=== PATIENT | female | born 1955 | race Hispanic/Latino ===

== ENCOUNTER 2019-03-22 12:01 | Emergency (ER) | payer OTHER, MEDICARE, SELFPAY ==
[2019-03-22 12:18] VITALS: BP 130/72; PULSE 54; RESP 18; TEMP 36.4; O2SAT 98; BMI 31.7
[2019-03-22 14:30] LABS: Bacteria Urine None Seen; RBC Urine None Seen (0-5/HPF)
[2019-03-22 14:47] LABS: Culture Indicated Urine Specimen Cultured; Mucus Urine 1+ (Negative); Squamous Epithelial Cell Urine 0-1 /HPF (0-5/HPF); WBC Urine 0-1/HPF (0-5/HPF)
--- NOTE | 2019-03-22 14:58 | DI.US.S_ITS ---
PROCEDURE: US PELVIC COMPLETE INDICATIONS: BILATERAL SUPRAPUBIC PAIN, postmenopausal TECHNIQUE: Real-time scanning was performed of the pelvic organs, with image documentation. Additional endovaginal scanning was necessary due to incomplete visualization of the adnexal and endometrial structures by transabdominal scanning. COMPARISON: None. FINDINGS: Transabdominal scanning: Limited scanning through the kidneys shows no hydronephrosis. No pathologic free abdominal or pelvic fluid. Endovaginal scanning: Uterus: The uterus is normal in size and measures 6.6 x 5.0 x 4.9 cm. Moderate heterogeneity of the myometrium is identified. An echogenic focus on the posterior myometrium may represent a calcification. The endometrium is thickened and measures 13 mm in maximal combined thickness with numerous small cystic spaces throughout. No definite fluid is appreciated. The cervix is unremarkable. Ovaries: The ovaries were not definitely seen, which likely is related to ovarian atrophy or overlying bowel gas. No adnexal masses are appreciated. IMPRESSION: 1. Thickened heterogeneous endometrium is unusual given the patient's postmenopausal state and is suspicious for a potential endometrial neoplasm. Gynecologic consultation is recommended for biopsy. 2. The ovaries are not identified. Dictated by: Clay Lindsay M.D. on 03/22/2019 at 15:03 Approved by: Clay Lindsay M.D. on 03/22/2019 at 15:11
[2019-03-22 15:00] VITALS: BP 122/79; PULSE 65; RESP 15; O2SAT 98
--- NOTE | 2019-03-22 15:48 | PC.NURSE ---
Pt had questions about blood work. Answered pts questions, pt agreeable to blood draw.
[2019-03-22 16:01] LABS: Add Manual Diff / Slide Review NO; Basophils Absolute Auto 0 /uL (0-100); Basophils Percent Auto 0.8 % (0-2); Eosinophils Absolute Auto 100 /uL (0-450); Eosinophils Percent Auto 1.7 % (2-4); Hematocrit 40.1 % (36-46); Hemoglobin 13.5 g/dL (12.0-16.0); Lymphocytes Absolute Auto 1600 /uL (1100-4500); Lymphocytes Percent Auto 30.6 % (25-40); Mean Corpuscular HGB Conc 33.7 % (30-36); Mean Corpuscular Hemoglobin 28.2 PG (26-34); Mean Corpuscular Volume 83.7 fL (80-100); Monocytes Absolute Auto 400 /uL (0-900); Monocytes Percent Auto 7.9 % (3-14); Neutrophils Absolute Auto 3100 /uL (1500-7000); Platelet Count 227 X10^3/uL (150-400); Red Blood Cell Count 4.79 X10^6/uL (4.0-5.2); Red Cell Distribution Width 13.1 % (11.6-14.8); White Blood Cell Count 5.3 X10^3/uL (4.5-11.0)
[2019-03-22 16:12] LABS: BUN Creatinine Ratio 22.9 (6-22); Blood Urea Nitrogen 16 mg/dL (7-17); Calcium 9.5 mg/dL (8.4-10.2); Carbon Dioxide 29 mmol/L (22-32); Chloride 102 mmol/L (98-107); Estimated Glomerular Filt Rate > 60.0 mL/min (>60); Glucose 101 mg/dL (80-110); HEMOLYSIS < 15 (0-50); Potassium 3.9 mmol/L (3.4-5.1); Sodium 140 mmol/L (137-145)
--- NOTE | 2019-03-22 16:15 | ED.ABDPAIN ---
HPI - Abdominal Pain <MERI ShelbyP - Last Filed: 03/22/19 19:42> General Chief Complaint: Abdominal Pain Stated Complaint: pelvic pain 1x week Time Seen by Provider: 03/22/19 14:20 Source: patient and family Mode of arrival: Family Vehicle Limitations: language barrier History of Present Illness HPI narrative: This is a 64-year-old female, nonsmoker, who presents to ED with family friend with chief complain of 1 week duration of suprapubic discomfort. Patient is currently visiting from [place] and does have established PCP back at home. Patient will return to home in about a week. Patient denies fever, nausea or vomiting for but some chills. Patient reports menopausal state for last 10 years without unusual vaginal bleeding or discharge. Patient does not endorses urinary symptoms such as urgency, dysuria, burning with sensation or hematuria. Patient denies close female family history of cancers. Related Data Home Medications Medication Instructions Recorded Confirmed levothyroxine 50 mcg PO DAILY 03/22/19 03/22/19 meloxicam 15 mg PO DAILY 03/22/19 simvastatin 40 mg PO DAILY 03/22/19 Allergies Allergy/AdvReac Type Severity Reaction Status Date / Time morphine Allergy Verified 03/22/19 14:23 lactose AdvReac Verified 03/22/19 14:23 Review of Systems <DARIEL Shelby - Last Filed: 03/22/19 19:42> Review of Systems Narrative: General: Denies fever, chills, fatigue, malaise, sweats. HEENT: Denies sinus pain, ear pain, sore throat, difficulty swallowing, dizziness. Respiratory: Denies dyspnea, cough, wheezing, hemoptysis, sputum. Cardiovascular: Denies chest pain, palpitations, orthopnea, edema. Gastrointestinal: Reports suprapubic discomfort for 1 week. Denies nausea, vomiting, abdominal pain, diarrhea, constipation, melena. : Denies dysuria, frequency, incontinence, hematuria, urinary retention. Musculoskeletal: Denies weakness, joint pain or bony pain. Skin: Denies rash, skin lesions, or other. Neurologic: Denies weakness, headache, numbness, change in speech, confusion, seizures, incoordination. Psychiatric: No concerning psychosocial issues. 12-point review of systems is negative except for those stated above. Patient History <DARIEL Shelby - Last Filed: 03/22/19 19:42> Surgical History H/O vein stripping (Acute) Social History Smoking Status: Never smoker Smoking Status: Never smoker alcohol intake frequency: holidays/special occasions only Substance Use Type: does not use Exam <DARIEL Shelby - Last Filed: 03/22/19 19:42> Narrative Exam Narrative: GEN: Alert, oriented x 3, well appearing and nourished, and in no acute distress. Head: Normal cephalic, atraumatic. No scalp or temporal tenderness, palpable mass or rash. EYES: Pupils are equal, round, and reactive to light and accommodation. Extraocular muscles are intact bilaterally. There is no subconjunctival hemorrhage, exudate and sclera non-icteric. ENT: Bilateral auditory canals and tympanic membranes clear. Hearing grossly intact. Nose without bleeding, purulent discharge or deviation. Facial sinuses nontender to palpate. Mucous membrane moist, no mucosal lesion. Throat without erythema, tonsillar hypertrophy or exudate. Uvula in midline, airway patent. Neck: Trachea in midline. No JVD, non-tender without lymphadenopathy. No masses or thyroid megaly. Supple, non-tender and no meningeal signs. CARDIAC: Normal regular rate and rhythm without murmurs, gallops, or rubs. No chest wall tenderness. No peripheral edema, cyanosis or pallor. Capillary refill is less than 2 seconds. RESPIRATORY: Lungs are clear to auscultate bilaterally. No cough, wheezes, rales, or rhonchi. No stridor, respiratory distress, increase work of breathing, or accessary muscle used. ABD: Abdomen soft, mild tender to palpate in bilateral suprapubic region and non-distended. No guarding or rebound tenderness to palpate. Bowel sounds are normal in all 4 quadrants. There is no palpable masses or organomegaly. EXT: Full painless ROM of all extremities with no loss of sensation, strength, effusion or edema. SKIN: Warm, dry, normal color for patient. No erythema, lesions or rash over visible areas. BACK: Nontender without deformity or crepitance. No flank tenderness. NEUROLOGICAL: Alert and oriented to place, time and person. Sensation and motor function intact bilaterally. No facial droops, dysphasia. PSYCHIATRIC: Good judgement and reason, without hallucinations, abnormal affect or abnormal behaviors during the examination. Initial Vital Signs Initial Vital Signs: Vital Signs Temperature 97.5 F L 03/22/19 12:18 Pulse Rate 54 L 03/22/19 12:18 Respiratory Rate 18 03/22/19 12:18 Blood Pressure 130/72 03/22/19 12:18 Pulse Oximetry 98 03/22/19 12:18 <Juhi Reyes MD - Last Filed: 03/22/19 19:53> Initial Vital Signs Initial Vital Signs: Vital Signs Temperature 97.5 F L 03/22/19 12:18 Pulse Rate 54 L 03/22/19 12:18 Respiratory Rate 18 03/22/19 12:18 Blood Pressure 130/72 03/22/19 12:18 Pulse Oximetry 98 03/22/19 12:18 Scores <DARIEL Shelby - Last Filed: 03/22/19 19:42> GCS [place] coma scale eye opening: Spontaneous [place] coma scale verbal response: Orientated [place] coma scale motor response: Obey commands [place] coma scale total score: 15 Course <DARIEL Shelby - Last Filed: 03/22/19 19:42> Orders Ordered: ED Orders 03/22/19 14:29 Urine Culture Stat Urine Microscopic Stat 03/22/19 14:58 US pelvic complete Stat 03/22/19 15:52 Basic Metabolic Panel Stat Complete Blood Count AUTO DIFF Stat Vital Signs Vital signs: Vital Signs - 8 hr 03/22/19 12:18 03/22/19 15:00 03/22/19 17:00 Temperature 97.5 F L Pulse Rate 54 L 65 63 Respiratory Rate 18 15 17 Blood Pressure 130/72 Blood Pressure [Right Arm] 122/79 126/66 Pulse Oximetry 98 98 98 03/22/19 18:00 Temperature Pulse Rate 62 Respiratory Rate 16 Blood Pressure 128/79 Blood Pressure [Right Arm] Pulse Oximetry 99 <Juhi Reyes MD - Last Filed: 03/22/19 19:53> Orders Ordered: ED Orders 03/22/19 14:29 Urine Culture Stat Urine Microscopic Stat 03/22/19 14:58 US pelvic complete Stat 12/31/19 15:52 Basic Metabolic Panel Stat Complete Blood Count AUTO DIFF Stat Vital Signs Vital signs: Vital Signs - 8 hr 03/22/19 12:18 03/22/19 15:00 03/22/19 17:00 Temperature 97.5 F L Pulse Rate 54 L 65 63 Respiratory Rate 18 15 17 Blood Pressure 130/72 Blood Pressure [Right Arm] 122/79 126/66 Pulse Oximetry 98 98 98 03/22/19 18:00 Temperature Pulse Rate 62 Respiratory Rate 16 Blood Pressure 128/79 Blood Pressure [Right Arm] Pulse Oximetry 99 MDM - Abdominal Pain <Ho Walker-MERI JuarezP - Last Filed: 03/22/19 19:42> Differential Diagnosis Differential diagnosis: Likely abdominal pain, acute appendicitis and other (Ovarian mass, endometrial mass) Medical Records Attestation: I reviewed the patient's medical records. Lab Data Attestation: I reviewed the patient's lab results. Result diagrams: 03/22/19 15:52 03/22/19 15:52 Labs: Lab Results 03/22/19 03/22/19 03/22/19 Range/Units 14:29 15:52 15:52 WBC 5.3 (4.5-11.0) X10^3/uL RBC 4.79 (4.0-5.2) X10^6/uL Hgb 13.5 (12.0-16.0) g/dL Hct 40.1 (36-46) % MCV 83.7 (80-100) fL MCH 28.2 (26-34) PG MCHC 33.7 (30-36) % RDW 13.1 (11.6-14.8) % Plt Count 227 (150-400) X10^3/uL Neut % (Auto) 59.0 (50-75) % Lymph % (Auto) 30.6 (25-40) % Schley % (Auto) 7.9 (3-14) % Eos % (Auto) 1.7 L (2-4) % Baso % (Auto) 0.8 (0-2) % Neut # (Auto) 3100 (9026-9461) /uL Lymph # (Auto) 1600 (5253-2004) /uL Schley # (Auto) 400 (0-900) /uL Eos # (Auto) 100 (0-450) /uL Baso # (Auto) 0 (0-100) /uL Sodium 140 (137-145) mmol/L Potassium 3.9 (3.4-5.1) mmol/L Chloride 102 (98-107) mmol/L Carbon Dioxide 29 (22-32) mmol/L BUN 16 (7-17) mg/dL Creatinine 0.70 (0.52-1.04) mg/dL Estimated GFR > 60.0 (>60) mL/min BUN/Creatinine Ratio 22.9 H (6-22) Glucose 101 (80-110) mg/dL Calcium 9.5 (8.4-10.2) mg/dL Urine RBC None seen (0-5/HPF) Urine WBC 0-1/hpf (0-5/HPF) Ur Squamous Epith Cells 0-1 /hpf (0-5/HPF) Urine Bacteria None seen (None) Urine Mucus 1+ H (Negative) Ur Culture Indicated? Specimen cultured Point of care testing: Urine Dip Bedside Urine Glucose Negative Bedside Urine Bilirubin - Negative Bedside Urine Ketone - Negative Urine Specific [place] 1.015 Bedside Urine Occult Blood - Negative Bedside Urine pH 6.5 Bedside Urine Protein +/- 15 Bedside Urine Urobilinogen +/- 1mg Bedside Urine Nitrite - Negative Bedside Urine Leukocytes + 70 Esterase Imaging Data US-Pelvic: Radiologist's Impression: [place] [address] Ultrasound Report Signed Patient: Hadley Fisher#: [id number] : 4Acct:[id number] Age/Sex: 64 / FDate of Service: 03/22/19 Loc: ED Accession Number: [id number] Procedure: US pelvic complete Ordering Provider: Ho Law PROCEDURE: US PELVIC COMPLETE INDICATIONS: BILATERAL SUPRAPUBIC PAIN, postmenopausal TECHNIQUE: Real-time scanning was performed of the pelvic organs, with image documentation. Additional endovaginal scanning was necessary due to incomplete visualization of the adnexal and endometrial structures by transabdominal scanning. COMPARISON: None. FINDINGS: Transabdominal scanning: Limited scanning through the kidneys shows no hydronephrosis. No pathologic free abdominal or pelvic fluid. Endovaginal scanning: Uterus: The uterus is normal in size and measures 6.6 x 5.0 x 4.9 cm. Moderate heterogeneity of the myometrium is identified. An echogenic focus on the posterior myometrium may represent a calcification. The endometrium is thickened and measures 13 mm in maximal combined thickness with numerous small cystic spaces throughout. No definite fluid is appreciated. The cervix is unremarkable. Ovaries: The ovaries were not definitely seen, which likely is related to ovarian atrophy or overlying bowel gas. No adnexal masses are appreciated. IMPRESSION: 1. Thickened heterogeneous endometrium is unusual given the patient's postmenopausal state and is suspicious for a potential endometrial neoplasm. Gynecologic consultation is recommended for biopsy. 2. The ovaries are not identified. Dictated by: Clay Lindsay M.D. on 03/22/2019 at 15:03 Approved by: Clay Lindsay M.D. on 03/22/2019 at 15:11 MDM Narrative Medical decision making narrative: This is a postmenopausal 64 year old female who presents to ED with family friend with chief complain of bilateral suprapubic discomfort for 1 week without unusual vaginal bleeding or discharge or urinary symptoms. Patient denies fever, nausea or vomiting. Abdominal exam was unremarkable for rebound tenderness, +BS in all quads, negative psoas signs. Has been stable with afebrile. CBC and chemistry tests were unremarkable today. Pelvic ultrasound indicates normal uterus in size but moderate heterogeneity of the myometrium and thickened endometrium of 13 mm in maximal combined thickness with numerous small cystic spaces. Findings were discussed with the patient which is concerned and advised to follow up with alpaca farmer specialist when she returns to home in [place] next week for possible biopsy. Return precautions were discussed with the patient and patient verbalized understanding. Advised to take [id number] Tylenol and or Motrin as needed for discomfort at this time. CT of ultrasound test and written report has been provided to the patient to follow up. <Juhi Reyes MD - Last Filed: 03/22/19 19:53> Lab Data Labs: Lab Results 03/22/19 03/22/19 03/22/19 Range/Units 14:29 15:52 15:52 WBC 5.3 (4.5-11.0) X10^3/uL RBC 4.79 (4.0-5.2) X10^6/uL Hgb 13.5 (12.0-16.0) g/dL Hct 40.1 (36-46) % MCV 83.7 (80-100) fL MCH 28.2 (26-34) PG MCHC 33.7 (30-36) % RDW 13.1 (11.6-14.8) % Plt Count 227 (150-400) X10^3/uL Neut % (Auto) 59.0 (50-75) % Lymph % (Auto) 30.6 (25-40) % Schley % (Auto) 7.9 (3-14) % Eos % (Auto) 1.7 L (2-4) % Baso % (Auto) 0.8 (0-2) % Neut # (Auto) 3100 (1612-1597) /uL Lymph # (Auto) 1600 (8446-6970) /uL Schley # (Auto) 400 (0-900) /uL Eos # (Auto) 100 (0-450) /uL Baso # (Auto) 0 (0-100) /uL Sodium 140 (137-145) mmol/L Potassium 3.9 (3.4-5.1) mmol/L Chloride 102 (98-107) mmol/L Carbon Dioxide 29 (22-32) mmol/L BUN 16 (7-17) mg/dL Creatinine 0.70 (0.52-1.04) mg/dL Estimated GFR > 60.0 (>60) mL/min BUN/Creatinine Ratio 22.9 H (6-22) Glucose 101 (80-110) mg/dL Calcium 9.5 (8.4-10.2) mg/dL Urine RBC None seen (0-5/HPF) Urine WBC 0-1/hpf (0-5/HPF) Ur Squamous Epith Cells 0-1 /hpf (0-5/HPF) Urine Bacteria None seen (None) Urine Mucus 1+ H (Negative) Ur Culture Indicated? Specimen cultured Point of care testing: Urine Dip Bedside Urine Glucose Negative Bedside Urine Bilirubin - Negative Bedside Urine Ketone - Negative Urine Specific [place] 1.015 Bedside Urine Occult Blood - Negative Bedside Urine pH 6.5 Bedside Urine Protein +/- 15 Bedside Urine Urobilinogen +/- 1mg Bedside Urine Nitrite - Negative Bedside Urine Leukocytes + 70 Esterase Discharge Plan Departure Patient Disposition: Home Clinical Impression: Abdominal pain, lower Discharge Date/Time: 03/22/19 18:00 Instructions: DI for Abdominal Pain-Adult Activity Restrictions/Additional Instructions: You have been diagnosed with [bilateral suprapubic/pelvic pain and thickened heterogeneous endometrium then needs to be followed up with alpaca farmer specialist for biopsy when you return to home next week. The blood test for CBC and chemistry were unremarkable today. Your urine is pending for culture and you'll get a phone call if you need a treatment with antibiotic medication for UTI]. What to do: *Take your medications as directed. You can use [id number] Tylenol and or Motrin as needed for discomfort. Tylenol 650-1000 mg at a time up to 4 times a day as needed for discomfort. Ibuprofen/Motrin 400-600 mg 3 times a day as needed for discomfort with food. *Follow up with your primary care provider in 2-3 days, call for an appointment. Let them know you were seen in the ED and that we asked you to be seen in follow up. *Return to ED if you have any new, worsening, or concerning symptoms, such as [severe pain, chest pain, breathing difficulty, heavy vaginal bleeding, fever or any acute concerns]. Prescriptions: No Action meloxicam 15 mg tablet 15 mg PO DAILY RF: 0 simvastatin 40 mg tablet 40 mg PO DAILY RF: 0 levothyroxine 50 mcg tablet 50 mcg PO DAILY RF: 0
[2019-03-22 17:00] VITALS: BP 126/66; PULSE 63; RESP 17; O2SAT 98
[2019-03-22 18:00] VITALS: BP 128/79; PULSE 62; RESP 16; O2SAT 99
== END 2019-03-22 18:00 | disposition home or self-care (01) ==
PROVIDERS: Emergency Provider Nurse Practitioner Family
DX: R10.30 Lower abdominal pain, unspecified (principal); R93.89 Abnormal findings on diagnostic imaging of other specified body structures
CPT/HCPCS: 76830; 76856; 80048; 81003; 81015; 85025; 87086; 99283; 99284